=== PATIENT | female | born 1980 | race Caucasian/White ===

== ENCOUNTER 2017-03-08 09:45 | Emergency (ER) | payer BC ==
[~2017-03-08] VITALS: Ht 162.6 cm; Wt 63.5 kg
[2017-03-08 09:47] VITALS: BP 167/79; PULSE 94; RESP 20; TEMP 98.3; O2SAT 99
--- NOTE | 2017-03-08 10:11 | PD ---
HPI . left foot pain s/p injury Chief Complaint: Injury Time Seen by Provider: 10:08 Travel History International Travel<30 days: No Contact w/Intl Traveler<30days: No Traveled to known affect area: No History of Present Illness HPI 36-year-old female with no past medical history here with complaints of left foot pain status post a speaker falling on her foot yesterday. She was also hit in the left foot with a soccer ball. Patient tells me that she dropped approximately 10 pound speaker on her left foot and has been trying to self treat at home with rest, ice and elevation. She is also taking ibuprofen. She thinks she may have fractured and decided to come to the emergency room for evaluation. She is visiting from [place] and will be returning tomorrow. PFSH Past Medical History Hx Anticoagulant Therapy: No Cardiovascular Problems: No Chemotherapy: No Cerebrovascular Accident: No Diabetes: No Respiratory: No ?: Not LMP: 02/22/17 Past Surgical History Hysterectomy: No Social History Tobacco Use: No Allergies-Medications (Allergen,Severity, Reaction): Coded Allergies: No Known Allergies (Unverified , 03/08/17) Reported Meds & Prescriptions Reported Meds & Active Scripts Active No Active Prescriptions or Reported Medications Review of Systems General / Constitutional: No: Fever Eyes: No: Visual changes HENT: No: Headaches Cardiovascular: No: Chest Pain or Discomfort Respiratory: No: Shortness of Breath Gastrointestinal: No: Abdominal Pain Genitourinary: No: Dysuria Musculoskeletal: Positive: Pain (left foot) Skin: No Rash Neurologic: No: Weakness Psychiatric: No: Depression Endocrine: No: Polydipsia Hematologic/Lymphatic: No: Easy Bruising Physical Exam Narrative GENERAL: AAO x 3, no acute distress, Well-nourished, well-developed patient. SKIN: Warm and dry. No visible rashes. Positive ecchymosis to the dorsum of the left foot in the metacarpal bones third through fifth HEAD: Normocephalic and atraumatic. EYES: No scleral icterus. No injection or drainage. ENT: No nasal drainage noted. . Airway patent. NECK: Supple, trachea midline. No JVD. CARDIOVASCULAR: Regular rate and rhythm without murmurs, gallops, or rubs. RESPIRATORY: Breath sounds equal bilaterally. No accessory muscle use. No rhonchi or rales. GASTROINTESTINAL: Visual inspection normal EXTREMITIES: No cyanosi. Mild edema to the left foot dorsum third to fifth metatarsals. There is point tenderness at the third fourth and fifth metatarsal. Toes of the left foot move normally. Right foot unaffected. Dorsi and plantar flexion normal. NEURO: strength normal left foot. BACK: Nontender without obvious deformity. No CVA tenderness. PSYCH: AAO x 3, normal affect. Data Data Last Documented VS Vital Signs Date Time Temp Pulse Resp B/P Pulse Ox O2 Delivery O2 Flow Rate FiO2 03/08/17 09:47 98.3 94 20 167/79 99 Room Air Orders Foot, Complete ([id number]) (03/08/17 10:11) Shoe Post Op (03/08/17 ) Crutches (03/08/17 11:43) Shoe Post Op (03/08/17 ) MDM Medical Decision Making Medical Screen Exam Complete: Yes Emergency Medical Condition: Yes Medical Record Reviewed: Yes Differential Diagnosis Left foot contusion, left foot fracture, less likely foot sprain Narrative Course This is a 36-year-old female presenting with acute left foot pain status post injury yesterday. This foot appears to have a possible fracture. X-ray has been ordered. xray negative for fracture. Discussed with patient. Post op shoe and crutches given for support. Advised OTC ibuprofen. Patient requesting stronger pain medication. Advised her that I did not feel narcotic pain medication was indicated due to no fracture. She was understanding. Diagnosis Primary Impression: Contusion, foot Qualified Code: S90.32XA - Contusion of left foot, initial encounter Patient Instructions: General Instructions Additional Instructions: Rest the affected area as much as possible. Ice this area for 15-20 minutes at a time. You can do this every hour or as much as tolerated. Keep this area compressed (lexi bandage) as tolerated. Elevate this area. Use ibuprofen as needed for pain and inflammation. Please return to emergency department if your symptoms return or worsen. Follow up with your primary care provider. Take medications as prescribed. Med/Other Pt SpecificInfo: No Change to Meds Scripts No Active Prescriptions or Reported Meds Disposition: 01 DISCHARGE HOME Condition: Stable Ilana Peck March 08, 2017 10:11
--- NOTE | 2017-03-08 11:40 | RADRPT ---
EXAM DATE/TIME: 03/08/2017 10:33 [facility] COMPARISON: No previous studies available for comparison. INDICATIONS : Patient states they dropped a speaker on left foot. Pain, swelling, and bruising to 4th and 5th mid-m etatarsals. MEDICAL HISTORY : None. SURGICAL HISTORY : None. ENCOUNTER: Initial ACUITY: 1 day PAIN SCORE: 5/10 LOCATION: Left Foot FINDINGS: 3 views of the left foot. Bone alignment within normal limits. No evidence of fracture. CONCLUSION: No evidence of fracture. Curry Raymond MD on March 08, 2017 at 11:37 Board Certified Radiologist. This report was verified electronically.
== END 2017-03-08 12:00 | disposition home or self-care (01) ==
LOC: NEPK 09:45
DX: S90.32XA Contusion of left foot, initial encounter (principal); W20.8XXA Other cause of strike by thrown, projected or falling object, initial encounter; Y93.9 Activity, unspecified; Y92.9 Unspecified place or not applicable; Y99.8 Other external cause status
CPT/HCPCS: 73630; 99283; L3260